=== PATIENT | female | born 1940 | race Caucasian/White ===

== ENCOUNTER 2020-02-24 09:46 | Inpatient (IN) | payer MEDICARE, OTHER, SELFPAY ==
[2020-02-24] VITALS (7 sets, daily range): BP systolic 110–120; BP diastolic 67–75; PULSE 60–84; RESP 14–20; TEMP 35.5–36.6; O2SAT 94–98; BMI 22.4; BMI 21.7; BMI 21.8
--- NOTE | 2020-02-24 10:26 | EKG12_ITS ---
Test Reason : ABD PAIN Blood Pressure : / mmHG Vent. Rate : 058 BPM Atrial Rate : 058 BPM P-R Int : 150 ms QRS Dur : 090 ms QT Int : 490 ms P-R-T Axes : 026 -22 -10 degrees QTc Int : 481 ms Sinus bradycardia Otherwise normal ECG Confirmed by ROBINA DE DIOS, JOSE ([id number]), staff editor SIS DYKES ([id number]) on 03/01/2020 2:03:18 PM Referred By: SHRADDHA Confirmed By:SULAIMAN QUARLES MD
--- NOTE | 2020-02-24 10:27 | CT_ITS ---
STUDY: CT ABDOMEN AND PELVIS WITH CONTRAST REASON FOR EXAM: Female, 79 years old. UPPER ABD PAIN SINCE THIS A.M. RADIATION DOSAGE (If Supplied By Facility): CTDIvol = ( 12.60 ) mGy, DLP = ( 396.77 ) mGycm TECHNIQUE: Transaxial images were obtained from the dome of the diaphragm to the symphysis pubis without oral contrast. IV 100mL Isovue-300 was administered. Sagittal and coronal images were reconstructed. Individualized dose optimization techniques were used for this CT. COMPARISON: 07/11/2011. FINDINGS: Limited views through the lower chest show evidence for right mastectomy. Mild fibrosis in the lung bases. Mild cardiomegaly. In the liver, a 1.5 cm low density structure in the dome of the liver is stable. There is mild intrahepatic bile duct distention. Abnormal gallbladder, moderately to markedly distended, thickened wall, and with intraluminal sludge and stones. Distended common carotid measuring 1.2 cm. No definite common bile duct stone. Grossly negative spleen. Grossly negative adrenal glands. The pancreas appears significantly larger than expected for patient of this age, cannot exclude pancreatic edema and generalized edema in the upper abdomen. Recommend correlation with pancreatic enzymes and evaluation for pancreatitis. No acute abnormalities of the kidneys. Again seen are numerous renal cysts. Largest is of the left upper pole and measures 4.2 cm. There are also parapelvic cysts of the left kidney. Right kidney again shows extensive scarring lower pole and extensive parenchymal calcifications and nonobstructing stones are not excluded. No definite hydronephrosis on either side. Evaluation of the GI tract is limited by absence of oral contrast. Cannot exclude stomach wall thickening. No dilated loops of bowel or evidence for obstruction. Cannot exclude segmental thickening of the lemus of the small or large bowel. Cannot exclude enteritis or colitis. Moderate diffuse fecal retention. Appendix within normal limits. Tortuous abdominal aorta. Normal inferior vena cava. Normal retroperitoneum. Normal urinary bladder. There is atrophy of the uterus. Normal abdominal wall. There are diffuse degenerative changes of the visualized lumbar spine. CT/Abdomen/Pelvis W IV Cont ONLY IMPRESSION: Intrahepatic bile duct distention. Distended gallbladder with sludge and stones. Distended common common bile duct. Enlarged possibly edematous pancreas suggestive of pancreatitis. Correlate with pancreatic enzymes. Electronically Signed: Arnel Christianson MD at 12:34 EDT , Service support ,
--- NOTE | 2020-02-24 10:28 | RAD_ITS ---
STUDY: X-RAY CHEST REASON FOR EXAM: Female, 79 years old. Upper abd pain. TECHNIQUE: Frontal and lateral views of the chest. COMPARISON: None. FINDINGS: There is hyperinflation of the lungs consistent with chronic obstructive lung disease (COPD). No infiltrates or effusions. There is no demonstrated pleural abnormality. Normal size heart. Normal mediastinum and [place]. Normal visualized pulmonary arteries. There is atherosclerotic tortuosity of the aortic arch and descending thoracic aorta. There are diffuse degenerative changes of the visualized thoracic spine. There is degenerative osteoarthritis of the bilateral shoulders. There is no demonstrated abnormality of the visualized soft tissue structures of the upper abdomen. RAD/Chest PA and Lateral IMPRESSION: No definite acute or significant abnormality seen. Electronically Signed: Arnel Christianson MD at 11:54 EDT , Service support ,
--- NOTE | 2020-02-24 10:32 | ED.VIS.GI ---
History of Present Illness Chief Complaint: Abd Pain Informant: Patient - Abdominal Pain/Flank Pain Onset: Today Context: Gradual Onset Timing: Waxes and wanes Quality: Aching Location: Epigastric, RUQ, LUQ - Nausea/Vomiting/Emesis GI Symptom: Nausea. Negative for: Vomiting - Diarrhea/Melena/Hematochezia GI Symptom: Negative for: Diarrhea, Melena, Hematochezia Associated Symptoms: Negative for: Dysuria, Frequency, Hematuria Narrative: Patient is an 79-year-old female with history of chronic back pain, on tramadol, hypertension and hyperlipidemia presenting with abdominal pain. Patient states at 4 AM she woke up from sleep because she was having abdominal pain. She states it is diffuse in her upper abdomen but seems to be little bit worse on the left than the right. She says it waxes and wanes in intensity. She describes it as achy and then sharp sometimes. She denies any associated chest pain, shortness of breath or diarrhea. She states she had 2 normal bowel movement this morning. She had an episode of nausea but no vomiting. She denies any fever or chills. She denies any urinary symptoms. Patient took 1/2 tablet of tramadol when she woke up this morning and then a 50 mg tablet of tramadol a couple hours later. She also took a 500 mg Tylenol. She is had no relief of her symptoms with this. Patient was started on tramadol 2 weeks ago for chronic back pain. She denies any sick contacts. She states she had a kidney stone 10+ years ago and the pain feels similar. Past Medical History - Allergies and Home Meds Allergies/Adverse Reactions: Allergies No Known Allergies Allergy (Verified 02/24/20 09:58) Past Medical History: - - Hypertension, hyperlipidemia, history of kidney stones remotely Surgical History: noncontributory Smoking Status: Never smoker - Family History Maternal Family History: Reports: - - Denies known maternal medical history including cardiac history. Paternal Family History: Reports: - - Denies known paternal medical history including cardiac history. Review of Systems General: Denies: Chills, Fever, Sweats Eyes: Denies: Visual changes - bilaterally, Diplopia ENT: Denies: Rhinorrhea, Sore throat Cardiovascular: Denies: Chest pain, Palpitations Respiratory: Denies: Dyspnea, Cough, Dyspnea on exertion Gastrointestinal: Reports: Abdominal pain, Nausea. Denies: Vomiting, Diarrhea, Constipation, Melena, Hematochezia Genitourinary: Denies: Dysuria, Hematuria, Frequency Musculoskeletal: Denies: Back pain, Extremity Pain Skin: Denies: Rash, Wounds Neurological: Denies: Headache, Weakness, Numbness Physical Exam Vital Signs/Narrative: Vital Signs Temp Pulse Resp BP Pulse Ox 02/24/20 09:47 96 F L 60 14 120/70 96 Inital Vital Signs reviewed: Yes General: Well nourished, Well developed, No Acute Distress Head: Normocephalic, Atraumatic Eyes: Perrl, EOMI ENT: Moist mucous membranes, No rhinorrhea Neck: Supple, Nontender Cardiovascular: Regular rate, Regular rhythm, No murmurs Respiratory: No distress, CTA bilaterally, Chest nontender Abdomen: Soft, Nondistended, Normal bowel sounds, No masses, Tender, - - Tenderness diffusely in the upper abdomen, left upper quadrant worse than right upper quadrant. Tenderness seems to be out of proportion to exam.. Negative for: Guarding, Rebound tenderness Back: Nontender, Normal Inspection. Negative for: CVA tenderness, Spinal tenderness Extremities: Nontender, No edema. Negative for: Edema Skin: Normal color, No rash Neurological: Alert, Oriented x3, Cranial nerves II-XII grossly intact, Normal Strength, Normal Sensation Psychological: Normal affect, Normal Mood Diagnostic/Tx/Re-eval Chest X-Ray - ED: 1 View, Read by ED Physician, Read by Radiologist, No Acute Disease Clinical Impression(s) from Imaging Studies Abdomen/Pelvis CT 02/24/20 10:27 IMPRESSION: Intrahepatic bile duct distention. Distended gallbladder with sludge and stones. Distended common common bile duct. Enlarged possibly edematous pancreas suggestive of pancreatitis. Correlate with pancreatic enzymes. Electronically Signed: Arnel Christianson MD at 12:34 EDT , Service support , Chest X-Ray 02/24/20 10:28 IMPRESSION: No definite acute or significant abnormality seen. Electronically Signed: Arnel Christianson MD at 11:54 EDT , Service support , Laboratory Data 02/24/20 02/24/20 02/24/20 10:40 10:40 10:40 WBC 11.6 H RBC 4.16 L Hgb 13.9 Hct 40.3 MCV 96.9 MCH 33.4 H MCHC 34.5 RDW Std Deviation 42.5 RDW Coeff of William 12.2 Plt Count 243 MPV 9.8 Immature Gran % (Auto) 0.300 Neut % (Auto) 91.1 H Lymph % (Auto) 3.2 L [place] % (Auto) 2.7 Eos % (Auto) 2.4 Baso % (Auto) 0.3 Absolute Neuts (auto) 10.6 H Absolute Lymphs (auto) 0.37 L Nucleated RBC % 0 Differential Comment COMMENT Sodium 138 Potassium 3.1 L Chloride 102 Carbon Dioxide 29.0 Anion Gap 7 BUN 21 H Creatinine 0.96 Estim Creat Clear Calc 41.36 Est GFR (MDRD) Af Amer 72 Est GFR (MDRD) Non-Af 59 L BUN/Creatinine Ratio 21.8 H Glucose 102 Lactic Acid 1.7 Calcium 9.2 Total Bilirubin 1.00 AST 139 H ALT 86 H Alkaline Phosphatase 72 Troponin I < 0.015 Total Protein 7.1 Albumin 3.8 Globulin 3.3 Albumin/Globulin Ratio 1.2 Lipase Urine Color Urine Clarity Urine pH Ur Specific [place] Urine Protein Urine Glucose (UA) Urine Ketones Urine Occult Blood Urine Nitrite Urine Bilirubin Urine Urobilinogen Ur Leukocyte Esterase Urine RBC Urine WBC Ur Squamous Epith Cells Urine Bacteria Urine Mucus 02/24/20 02/24/20 10:40 12:10 WBC RBC Hgb Hct MCV MCH MCHC RDW Std Deviation RDW Coeff of William Plt Count MPV Immature Gran % (Auto) Neut % (Auto) Lymph % (Auto) [place] % (Auto) Eos % (Auto) Baso % (Auto) Absolute Neuts (auto) Absolute Lymphs (auto) Nucleated RBC % Differential Comment Sodium Potassium Chloride Carbon Dioxide Anion Gap BUN Creatinine Estim Creat Clear Calc Est GFR (MDRD) Af Amer Est GFR (MDRD) Non-Af BUN/Creatinine Ratio Glucose Lactic Acid Calcium Total Bilirubin AST ALT Alkaline Phosphatase Troponin I Total Protein Albumin Globulin Albumin/Globulin Ratio Lipase 36276 H Urine Color Yellow Urine Clarity Cloudy Urine pH 7.0 Ur Specific [place] 1.005 Urine Protein 15 H Urine Glucose (UA) Normal Urine Ketones Negative Urine Occult Blood 10 H Urine Nitrite Positive H Urine Bilirubin Negative Urine Urobilinogen Normal Ur Leukocyte Esterase 500 H Urine RBC 0-5 SEEN Urine WBC 25-50 SEEN Ur Squamous Epith Cells 0 SEEN Urine Bacteria 3+ Urine Mucus 0 SEEN - Rhythm Strip Rhythm Strip: Sinus Rhythm Rate: 58 Ectopy: None - EKG Initial EKG Interpretation: Sinus Bradycardia, - - Sinus bradycardia at a rate of 58 Normal intervals Normal axis Normal ST segments - Medical Decision Making Patient is evaluated for 1 day of epigastric/upper quadrant abdominal pain. Patient is quite tender in her upper abdomen diffusely. Hemodynamically she is stable. Patient is given morphine and Zofran for pain control. Lab work is pertinent for a mildly elevated left white blood cell count and a significantly elevated lipase. CT of the abdomen pelvis shows an enlarged gallbladder with sludge and gallstones as well as a distended common bile duct. This presentation is concerning for pancreatitis and possibly gallstone pancreatitis. Discussed the case with surgery on-call, Dr. Ariza, who agrees to evaluate the patient but states that should be a primary medicine admission. Discussed with medicine on-call who agrees admit the patient. Patient does have 500 leukoesterase in her urine. She is not having UTI symptoms and is not had significant white blood cells. Urine culture sent but she is not started antibiotics at this time. I question if the elevated leukoesterase is secondary to inflammatory changes from her pancreatitis. Patient is agreeable with admission. She is given a second dose of IV morphine for pain control emergency room as well as IV fluids. ED Disposition - Plan for ED Patient: Disposition: Acute Care Hospital [facility] Diagnosis: Acute pancreatitis, Gallstones
[2020-02-24] MEDS: Morphine 4 MG/ML Syringe IV ×3 (10:46→23:45)
[2020-02-24] MEDS: Ondansetron 4 MG/2 ML Vial IV (10:46)
[2020-02-24 10:50] LABS: Absolute Lymphocyte Count 0.37 X10^3/uL (0.83-4.51); Absolute Neutrophil Count 10.6 X10^3/uL (2.0-7.7); Basophil# 0.04 X10^3/uL; Basophil% 0.3 % (0-1); Eosinophil# 0.28 X10^3/uL; Eosinophils% 2.4 % (0-5); Hematocrit 40.3 % (37-47); Hemoglobin 13.9 g/dL (12.0-15.0); Lymphocyte # 0.37 X10^3/ul (4.0); Lymphocyte % 3.2 % (19-41); Mean Corp Hgb Conc 34.5 g/dL (32-36); Mean Corpuscular Hgb 33.4 pg (27.0-32.0); Mean Corpuscular Volume 96.9 fL (81-99); Mean Platelet Vol. 9.8 fl (6.2-12.0); Monocyte# 0.31 X10^3/uL; Monocyte% 2.7 % (0-10); NRBC Flagged by Analyzer 0 % (0-5); Neutrophil # 10.59 X10^3/uL (2.7-7.7); Neutrophil % 91.1 % (47-70); POSITIVE DIFFERENTIAL YES; POSITIVE MORPHOLOGY YES; Platelet Count 243 K/mm3 (150-450); RBC Distribution Width CV 12.2 % (11.6-14.6); RBC Distribution Width SD 42.5 fl (35.1-43.9); Red Blood Count 4.16 M/mm3 (4.2-5.4); White Blood Count 11.6 K/mm3 (4.4-11.0)
[2020-02-24 10:53] LABS: Differential Indicated SCAN CRITERIA MET
[2020-02-24 11:08] LABS: ALB/GLOB Ratio 1.2 RATIO (0.9-2.4); AST(SGOT) 139 U/L (15-37); Alanine Aminotransfer ALT/SGPT 86 U/L (13-56); Albumin, Serum 3.8 g/dL (3.2-5.0); Alkaline Phosphatase 72 U/L (45-117); Anion Gap 7 (5-15); BUN 21 mg/dL (7-18); BUN/Creat Ratio 21.8 RATIO (10-20); Calcium,Total 9.2 mg/dL (8.5-10.1); Chloride 102 mmol/L (98-107); Creatinine, Serum 0.96 mg/dL (0.55-1.02); EST Glomerular Filtration Rate 59 mL/min (>60); Est Glom Filt Rate - Afr Amer 72 mL/min (>60); Estimated Creatinine Clearance 41.36 ml/min; Globulin 3.3 g/dL (2.2-4.2); Glucose 102 mg/dL (74-106); Potassium 3.1 mmol/L (3.5-5.1); Protein, Total 7.1 g/dL (6.4-8.2); Sodium Level 138 mmol/L (136-145)
[2020-02-24 11:10] LABS: Lactic Acid 1.7 mmol/L (0.4-1.9)
[2020-02-24 12:03] LABS: Lipase 17988 U/L (73-393)
[2020-02-24 12:19] LABS: Mucous, Urine 0 SEEN /hpf (<or=2+); Squamous Epithelial Cells - UA 0 SEEN /hpf (5-10)
[2020-02-24 12:20] LABS: Color, Urine Yellow (Yellow); Glucose, Dipstick Normal (Normal); Ketone-Dipstick Negative (Negative); Leukocyte Esterase-Dipstick 500 /ul (Negative); Nitrite-Dipstick Positive (Negative); Occult Blood-Urine 10 /ul (Negative); Protein-Dipstick 15 mg/dl (Negative); Specific Gravity, Urine 1.005 (1.002-1.030); Urine Bilirubin Dipstick Negative (Negative); Urine Clarity Cloudy (Clear); Urine Urobilinogen Normal (Normal)
[2020-02-24 12:30] LABS: White Blood Cells 25-50 SEEN /hpf (0-5)
[2020-02-24 12:31] LABS: Bacteria 3+ /hpf (None Seen); Red Blood Cells-Urine 0-5 SEEN /hpf (0-5)
[2020-02-24] MEDS: 0.9% Normal Saline 1,000 ML 999 ML IV (13:06)
--- NOTE | 2020-02-24 13:23 | HP.PCM_ITS ---
<Bailee Torres - Last Filed: 02/24/20 14:28> Problem List (1) Acute pancreatitis Status: Acute (2) Hypertension Status: Chronic (3) Hyperlipidemia Status: Chronic (4) GERD (gastroesophageal reflux disease) Status: Chronic History of Present Illness Date of Admission: 02/24/20 Chief Complaint: Abdominal pain. The patient is a 79 year old F who presents emergency room due to abdominal pain. Patient states abdominal pain had a fairly sudden onset early this morning about 4 AM. She describes generalized abdominal pain however slightly increased in the left upper quadrant. She denies nausea, vomiting. Denies fever, chills. Denies urinary symptoms. Denies flank pain. Denies other recent illness. She has a past medical history of hypertension, hyperlipidemia, GERD. Past Medical History Past Medical History (Chronic Problems): Chronic Problems Hypertension (Chronic) Hyperlipidemia (Chronic) GERD (gastroesophageal reflux disease) (Chronic) Cholelithiasis with chronic cholecystitis (Chronic) Allergies No Known Allergies Allergy (Verified 02/24/20 09:58) Home Medications: Ambulatory Orders Medication Instructions Recorded Hydrochlorothiazide [Hctz] 25 mg PO DAILY 06/17/17 Potassium Chloride [K-Dur] 20 meq PO DAILY 06/17/17 Acetaminophen [Tylenol] 1,000 mg PO Q8H PRN PRN 02/24/20 Atorvastatin Calcium [Lipitor] 10 mg PO QHS 02/24/20 Metoprolol Succinate [Toprol Xl] 100 mg PO DAILY 02/24/20 traMADol [Ultram (G)] 25 - 50 mg PO Q6H PRN PRN 02/24/20 Surgical History: - - Right total knee arthroplasty, mastectomy Psychiatric History: No pertinent psych hx 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 Paternal History Items: - - Denies known paternal medical history including cardiac history. Review of Systems Constitutional: Denies: Chills, Fever, Weight Change HEENT: Denies: Head Aches, Sinus Congestion, Sinus Drainage Cardiovascular: Denies: Chest Pain, Palpitations Respiratory: Denies: Cough, Shortness of breath at rest, Sputum production Gastrointestinal: Reports: Abdominal Pain. Denies: Nausea, Vomiting Genitourinary: Denies: Dysuria Musculoskeletal: Denies: Joint Pain, Joint Tenderness Skin: Denies: Rash, Wounds Neurological: Denies: Numbness, Tingling, Focal weakness Psychiatric: Denies: Anxiety, Depression, Homicidal Ideations, Suicidal Ideations Hematologic/ Lymphatic: Denies: Easy Bruising, Easy Bleeding VTE Information - Inpt Only VTE Present on Admission: No VTE Mechan Device Prophylaxis: None VTE Pharm Prophylaxis ordered?: Yes Patient Problems: Active and Suspected Problems Acute pancreatitis (Acute) Gallstones (Acute) - Physical Exam Vitals/I&O's: Vital Signs Temp Pulse Resp BP Pulse Ox 96 F L 64 18 112/67 98 02/24/20 09:47 02/24/20 13:10 02/24/20 13:10 02/24/20 13:10 02/24/20 13:10 Oxygen Delivery Method Room Air Weight: 134 lb 11.239 oz Body Mass Index (BMI) 22.4 General: Alert, Oriented x3, Cooperative HEENT: Atraumatic, PERRLA, EOMI, Normocephalic Neck: Supple, No JVD, Negative Carotid Bruits Lungs: Clear to auscultation, Normal air movement Cardiovascular: Regular rate, Regular Rhythm, Normal S1, Normal S2, No murmurs Abdomen: Bowel Sounds Present, Soft, Non-Distended, Tender Extremities: No clubbing, No cyanosis, No edema, Capillary Refill Less than 3 Seconds Skin: No rashes, No breakdown Musculoskeletal: No Tenderness to Palpation of Joints or Extremities Neurological: Cranial nerves II-XII grossly intact, Neuro grossly intact Psych/Mental Status: Normal Affect, Appropriate Laboratory Results 02/24/20 10:40: WBC 11.6 H, RBC 4.16 L, Hgb 13.9, Hct 40.3, MCV 96.9, MCH 33.4 H , MCHC 34.5, RDW Std Deviation 42.5, RDW Coeff of William 12.2, Plt Count 243, MPV 9.8, Immature Gran % (Auto) 0.300, Neut % (Auto) 91.1 H, Lymph % (Auto) 3.2 L, [place] % (Auto) 2.7, Eos % (Auto) 2.4, Baso % (Auto) 0.3, Absolute Neuts (auto) 10.6 H, Absolute Lymphs (auto) 0.37 L, Nucleated RBC % 0, Differential Comment COMMENT 02/24/20 10:40: Sodium 138, Potassium 3.1 L, Chloride 102, Carbon Dioxide 29.0, Anion Gap 7, BUN 21 H, Creatinine 0.96, Estim Creat Clear Calc 41.36, Est GFR (MDRD) Af Amer 72, Est GFR (MDRD) Non-Af 59 L, BUN/Creatinine Ratio 21.8 H, G lucose 102, Calcium 9.2, Total Bilirubin 1.00, AST 139 H, ALT 86 H, Alkaline Phosphatase 72, Troponin I < 0.015, Total Protein 7.1, Albumin 3.8, Globulin 3.3, Albumin/Globulin Ratio 1.2 02/24/20 10:40: Lactic Acid 1.7 02/24/20 10:40: Lipase 59332 H 02/24/20 12:10: Urine Color Yellow, Urine Clarity Cloudy, Urine pH 7.0, Ur Specific [place] 1.005, Urine Protein 15 H, Urine Glucose (UA) Normal, Urine Ketones Negative, Urine Occult Blood 10 H, Urine Nitrite Positive H, Urine Bilirubin Negative, Urine Urobilinogen Normal, Ur Leukocyte Esterase 500 H, Urine RBC 0-5 SEEN, Urine WBC 25-50 SEEN, Ur Squamous Epith Cells 0 SEEN, Urine Bacteria 3+, Urine Mucus 0 SEEN Current Medications Sodium Chloride () 1,000 mls @ 999 mls/hr IV .Q1H1M ONE Stop: 02/24/20 13:47 Last Admin: 02/24/20 13:06 Dose: 999 mls/hr Documented by: Assessment/Plan All Active Problems Acute pancreatitis (Acute) Gallstones (Acute) 1. Acute pancreatitis, possible gallstone pancreatitis-CT abdomen pelvis on admission shows intrahepatic bile duct distention, distended gallbladder with sludge and stones. Distended common bile duct. Pancreatitis. Lipase 69565. Total bilirubin normal. N.p.o. IV fluids. PRN pain regimen. Repeat labs in a.m. Dr. Ariza, general surgery consulted. Gallbladder ultrasound ordered. 2. Suspected UTI-UA with 3+ bacteria, positive nitrite. Culture pending. Patient denies symptoms. Will initiate antibiotics if culture shows significant growth. 3. Mild hypokalemia-replace per protocol, trend BMP. 4. Hypertension-stable, continue metoprolol. Hold HCTZ. 5. Hyperlipidemia-continue statin. 6. GERD- continue ranitidine regimen. DVT prophylaxis- Lovenox sc This patient was seen by JOE Lundberg under the supervision of Dr. Paredes. <Jordan Paredes F - Last Filed: 02/24/20 16:03> History of Present Illness The patient is a 79 year old F [] Past Medical History Allergies No Known Allergies Allergy (Verified 02/24/20 09:58) - Physical Exam Vitals/I&O's: Vital Signs Temp Pulse Resp BP Pulse Ox 97.4 F L 80 20 H 116/75 94 02/24/20 14:45 02/24/20 14:54 02/24/20 14:45 02/24/20 14:45 02/24/20 14:45 Oxygen Delivery Method Room Air Weight: 130 lb 12.8 oz Body Mass Index (BMI) 21.7 Intake and Output for Last 24 Hours 02/22/20 02/23/20 02/24/20 23:59 23:59 23:59 Intake Total 1000 / 1000 Balance 1000 / 1000 Laboratory Results 02/24/20 10:40: WBC 11.6 H, RBC 4.16 L, Hgb 13.9, Hct 40.3, MCV 96.9, MCH 33.4 H , MCHC 34.5, RDW Std Deviation 42.5, RDW Coeff of William 12.2, Plt Count 243, MPV 9.8, Immature Gran % (Auto) 0.300, Neut % (Auto) 91.1 H, Lymph % (Auto) 3.2 L, [place] % (Auto) 2.7, Eos % (Auto) 2.4, Baso % (Auto) 0.3, Absolute Neuts (auto) 10.6 H, Absolute Lymphs (auto) 0.37 L, Nucleated RBC % 0, Differential Comment COMMENT 02/24/20 10:40: Sodium 138, Potassium 3.1 L, Chloride 102, Carbon Dioxide 29.0, Anion Gap 7, BUN 21 H, Creatinine 0.96, Estim Creat Clear Calc 41.36, Est GFR (MDRD) Af Amer 72, Est GFR (MDRD) Non-Af 59 L, BUN/Creatinine Ratio 21.8 H, Glucose 102, Calcium 9.2, Total Bilirubin 1.00, AST 139 H, ALT 86 H, Alkaline Phosphatase 72, Troponin I < 0.015, Total Protein 7.1, Albumin 3.8, Globulin 3.3, Albumin/Globulin Ratio 1.2 02/24/20 10:40: Lactic Acid 1.7 02/24/20 10:40: Lipase 50110 H 02/24/20 12:10: Urine Color Yellow, Urine Clarity Cloudy, Urine pH 7.0, Ur Specific [place] 1.005, Urine Protein 15 H, Urine Glucose (UA) Normal, Urine Ketones Negative, Urine Occult Blood 10 H, Urine Nitrite Positive H, Urine Bi lirubin Negative, Urine Urobilinogen Normal, Ur Leukocyte Esterase 500 H, Urine RBC 0-5 SEEN, Urine WBC 25-50 SEEN, Ur Squamous Epith Cells 0 SEEN, Urine Bacteria 3+, Urine Mucus 0 SEEN Current Medications Enoxaparin Sodium (Lovenox) 40 mg SC DAILY COUNTS INCLUDE 234 BEDS AT THE [facility] Sodium Chloride () 250 mls @ 15 mls/hr IV .[id number] PRN PRN Reason: Saline Flush Sodium Chloride () 250 mls @ 15 mls/hr IV .[id number] PRN PRN Reason: Additional IVPB Infusion Sodium Chloride () 1,000 mls @ 125 mls/hr IV .Q8H COUNTS INCLUDE 234 BEDS AT THE [facility] Last Admin: 02/24/20 14:41 Dose: 125 mls/hr Documented by: Potassium Chloride () 10 meq in 100 mls @ 100 mls/hr IV BOLUS Q1H COUNTS INCLUDE 234 BEDS AT THE [facility] Stop: 02/24/20 17:59 Magnesium Sulfate 2 gm/ Sodium (Chloride) 104 mls @ 52 mls/hr IV X1 ONE Stop: 02/24/20 16:23 Ampicillin Sodium/Sulbactam (Sodium 3 gm/ Sodium Chloride) 112 mls @ 150 mls/hr IV Q8 COUNTS INCLUDE 234 BEDS AT THE [facility] Melatonin (Melatonin) 3 mg PO QHS PRN PRN PRN Reason: INSOMNIA Morphine Sulfate () 2 - 4 mg IV Q3H PRN PRN PRN Reason: Pain Score 6-10/10 Last Admin: 02/24/20 14:41 Dose: 4 mg Documented by: Morphine Sulfate () 2 - 4 mg IV Q3H PRN PRN PRN Reason: pain scale 6-10/10 Ondansetron HCl (Zofran) 4 mg IV Q8H PRN PRN PRN Reason: NAUSEA/VOMITING Sodium Chloride () 10 - 40 ml IV UD PRN PRN Reason: SALINE FLUSH Last Admin: 02/24/20 14:50 Dose: 5 ml Documented by: Addendum: Dr. Paredes I personally examined the patient and reviewed the chart. I agree with the above. 79-year-old female presenting with abdominal pain that started this morning at 4 AM. She points to her mid epigastrium and was found to have pancreatitis on CT scan with a highly elevated lipase. She also had a dilated common bile duct on CT scan and is currently undergoing an ultrasound. Plan will be for positive operative intervention tomorrow morning, in the meantime we will also start her on Unasyn because she does have signs of a UTI and this will help cover her possible cholecystitis. She has a slight elevation in her white count otherwise no other significant sign of infection. Bilirubin also is at 1, so is possible that this is very early in the obstruction or if she already passed a stone. We will continue making her n.p.o. and replace her potassium. Continue with IV fluids at 125 cc/h. We will continue with morphine as well for pain management. Inpatient E&M: [id number] Init Hosp L3
--- NOTE | 2020-02-24 13:33 | ED.RN ---
PT MOTHER PHONE NUMBER [phone]
--- NOTE | 2020-02-24 14:24 | US_ITS ---
STUDY: ABDOMINAL ULTRASOUND - RIGHT UPPER QUADRANT REASON FOR VISIT: Female, 79 years old PANCREATITIS AND GALLSTONES TECHNIQUE: Ultrasound evaluation of the right upper quadrant was performed with real-time and static ellis-scale imaging. TECHNICAL QUALITY: Adequate. COMPARISON: CT scan of the same day. FINDINGS: Liver: The liver measures 16.1 cm. There is normal echogenicity of the liver. The bile ducts are within normal limits. There is hepatic color flow. The direction of portal flow is hepatopetal. There is a probable 1.9 cm hemangioma of the right lobe. Gallbladder: There is a markedly distended gallbladder. The gallbladder wall measures 8 mm. There is a positive sonographic Godoy''s sign. There is pericholecystic fluid. There are multiple echogenic structures within the gallbladder, consistent with multiple gallstones. There is slight. Common Bile Duct (C.B.D.): The common bile duct measures 1.2 mm. Pancreas: Normal size of the head, body and tail of the pancreas. There is normal echogenicity of the pancreas. There is no demonstrated pancreatic mass or cyst. Right Kidney: Normal size of the right kidney. The right kidney measures 9.8 cm. There is thinning of the renal cortex. The right cortex measures 0.9 cm. There is no demonstrated renal mass or cyst. There is no right hydronephrosis. US/Gallbladder IMPRESSION: As seen on CT scan, markedly abnormal gallbladder is distended, has a thickened wall, numerous stones and sludge, and there was localized tenderness consistent with cholecystitis. Electronically Signed: Arnel Christianson MD at 15:55 EDT , Service support ,
[2020-02-24] MEDS: 0.9% Normal Saline 1,000 ML 125 ML IV (14:41)
[2020-02-24] MEDS: Morphine 2 MG/ML Syringe IV (14:41)
[2020-02-24] MEDS: 0.9% Saline Lock 10 ML Syringe IV ×3 (14:50→17:57)
--- NOTE | 2020-02-24 15:09 | NURSING ---
Johanna in lab was notified to draw blood work so results are in by 0600.
--- NOTE | 2020-02-24 15:10 | PCM.CONS.GEN ---
Problem List (1) Acute pancreatitis Status: Acute Qualifiers: Pancreatitis type: biliary Acute pancreatitis complication: unspecified Qualified Code(s): K85.10 - Biliary acute pancreatitis without necrosis or infection (2) Cholelithiasis with chronic cholecystitis Status: Chronic Qualifiers: Cholelithiasis location: gallbladder and bile duct Reason for Consult Date of Consultation: 02/24/20 History of Present Illness: The patient is a 79 year old F who presents to the emergency room with a 1 day history of severe epigastric left upper quadrant pain but at least a 2-week history of intermittent waxing and waning epigastric left upper quadrant pain. I been asked to see this patient in consultation by and Dr Paredes and a written copy of my surgical consult will be present on her charting. The patient's primary care physician is Dr. Timothy Dickey. The patient states she is never previous had any abdominal surgery. She thought this episode was just indigestion or gas. Denies fever. She had some back pain last week for which she went to see Dr. Hammond. Otherwise she states that she has been mostly homebound with the pandemic restrictions. On her presentation her white blood cell count was 11.6 with a hemoglobin 13.9 hematocrit of 40.3 and a platelet count of 243,000 with 91% neutrophils. Potassium was low at 3.1 and BUN is elevated to 21 and creatinine 0.96. Lactic acid level was 1.7. Total bilirubin is 1. AST 139. ALT 86. Alkaline phosphatase 72. Lipase is 17,988. In addition her urinalysis appears notable for occult blood and positive urine nitrite and 500 leukocyte esterase. Urine WBCs 25-50. Chest x-ray did not show acute abnormality CT of the abdomen and pelvis with IV contrast only demonstrated mild intrahepatic bile duct distention. Moderately to markedly distended thick-walled gallbladder with intraluminal sludge and stones. Common bile duct 1.2 cm. No definitive common bile duct stone. The pancreas appears significant larger than expected. Cannot exclude pancreatic edema. Enzymes recommended. It is of note that the patient is afebrile. Heart rate is normal respirations slightly elevated. Blood pressure normal. Despite 8 mg of morphine provided in the emergency room intravenously the patient is still claiming to have a 9 out of 10 pain. She points to the epigastric left upper quadrant. Past Medical History Past Medical History (Chronic Problems): Chronic Problems Hypertension (Chronic) Hyperlipidemia (Chronic) GERD (gastroesophageal reflux disease) (Chronic) Cholelithiasis with chronic cholecystitis (Chronic) Allergies No Known Allergies Allergy (Verified 02/24/20 09:58) Home Medications: Ambulatory Orders Medication Instructions Recorded Hydrochlorothiazide [Hctz] 25 mg PO DAILY 06/17/17 Potassium Chloride [K-Dur] 20 meq PO DAILY 06/17/17 Acetaminophen [Tylenol] 1,000 mg PO Q8H PRN PRN 02/24/20 Atorvastatin Calcium [Lipitor] 10 mg PO QHS 02/24/20 Metoprolol Succinate [Toprol Xl] 100 mg PO DAILY 02/24/20 traMADol [Ultram (G)] 25 - 50 mg PO Q6H PRN PRN 02/24/20 Surgical History: - - Right total knee arthroplasty, mastectomy Psychiatric History: No pertinent psych hx 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 Paternal History Items: - - Denies known paternal medical history including cardiac history. Review of Systems Constitutional: Reports: Anorexia. Denies: Chills, Fever, Night Sweats HEENT: Reports: Difficulty Hearing. Denies: Difficulty Swallowing Cardiovascular: Reports: Chest Pain, - - Left upper quadrant lower chest pain. Difficulty taking deep respiration. Respiratory: Reports: Pleuritic Pain Gastrointestinal: Reports: Abdominal Pain. Denies: Melena Neurological: Denies: Balance problems Endocrine: Denies: Change in Body Habitus Patient Problems: Active and Suspected Problems Acute pancreatitis (Acute) - Physical Exam Vitals/I&O's: Vital Signs Temp Pulse Resp BP Pulse Ox 97.4 F L 80 20 H 116/75 94 02/24/20 14:45 02/24/20 14:54 02/24/20 14:45 02/24/20 14:45 02/24/20 14:45 Oxygen Delivery Method Room Air Weight: 130 lb 12.8 oz Body Mass Index (BMI) 21.7 Intake and Output for Last 24 Hours 02/22/20 02/23/20 02/24/20 23:59 23:59 23:59 Intake Total 1000 / 1000 Balance 1000 / 1000 General: Alert, Oriented x3, Cooperative, - - Patient appears to be uncomfortable HEENT: Atraumatic Oral: Moist Mucosa Neck: Supple Lungs: Clear to auscultation, - - Splinting and decreased air movement Cardiovascular: Regular rate, Regular Rhythm Abdomen: Bowel Sounds Not Present, Distended, - - Tender throughout the epigastrium particularly left upper quadrant. More mild tenderness right upper quadrant. Extremities: No Calf Tenderness, - - Well-healed right anterior knee vertical incision. Musculoskeletal: No Muscle Wasting Neurological: - - Cognition intact Psych/Mental Status: Normal Affect Laboratory Results 02/24/20 10:40: WBC 11.6 H, RBC 4.16 L, Hgb 13.9, Hct 40.3, MCV 96.9, MCH 33.4 H, MCHC 34.5, RDW Std Deviation 42.5, RDW Coeff of Iwlliam 12.2, Plt Count 243, MPV 9.8, Immature Gran % (Auto) 0.300, Neut % (Auto) 91.1 H, Lymph % (Auto) 3.2 L, Hamlin % (Auto) 2.7, Eos % (Auto) 2.4, Baso % (Auto) 0.3, Absolute Neuts (auto) 10.6 H, Absolute Lymphs (auto) 0.37 L, Nucleated RBC % 0, Differential Comment COMMENT 02/24/20 10:40: Sodium 138, Potassium 3.1 L, Chloride 102, Carbon Dioxide 29.0, Anion Gap 7, BUN 21 H, Creatinine 0.96, Estim Creat Clear Calc 41.36, Est GFR (MDRD) Af Amer 72, Est GFR (MDRD) Non-Af 59 L, BUN/Creatinine Ratio 21.8 H, Glucose 102, Calcium 9.2, Total Bilirubin 1.00, AST 139 H, ALT 86 H, Alkaline Phosphatase 72, Troponin I < 0.015, Total Protein 7.1, Albumin 3.8, Globulin 3.3, Albumin/Globulin Ratio 1.2 02/24/20 10:40: Lactic Acid 1.7 02/24/20 10:40: Lipase 72801 H 02/24/20 12:10: Urine Color Yellow, Urine Clarity Cloudy, Urine pH 7.0, Ur Specific [place] 1.005, Urine Protein 15 H, Urine Glucose (UA) Normal, Urine Ketones Negative, Urine Occult Blood 10 H, Urine Nitrite Positive H, Urine Bilirubin Negative, Urine Urobilinogen Normal, Ur Leukocyte Esterase 500 H, Urine RBC 0-5 SEEN, Urine WBC 25-50 SEEN, Ur Squamous Epith Cells 0 SEEN, Urine Bacteria 3+, Urine Mucus 0 SEEN Current Medications Enoxaparin Sodium (Lovenox) 40 mg SC DAILY [facility] Sodium Chloride () 250 mls @ 15 mls/hr IV .[id number] PRN PRN Reason: Saline Flush Sodium Chloride () 250 mls @ 15 mls/hr IV .[id number] PRN PRN Reason: Additional IVPB Infusion Sodium Chloride () 1,000 mls @ 125 mls/hr IV .Q8H [facility] Last Admin: 02/24/20 14:41 Dose: 125 mls/hr Documented by: Potassium Chloride () 10 meq in 100 mls @ 100 mls/hr IV BOLUS Q1H [facility] Stop: 02/24/20 17:59 Magnesium Sulfate 2 gm/ Sodium (Chloride) 104 mls @ 52 mls/hr IV X1 ONE Stop: 02/24/20 16:23 Ampicillin Sodium/Sulbactam (Sodium 3 gm/ Sodium Chloride) 112 mls @ 150 mls/hr IV Q8 [facility] Melatonin (Melatonin) 3 mg PO QHS PRN PRN PRN Reason: INSOMNIA Morphine Sulfate () 2 - 4 mg IV Q3H PRN PRN PRN Reason: Pain Score 6-10/10 Last Admin: 02/24/20 14:41 Dose: 4 mg Documented by: Morphine Sulfate () 2 - 4 mg IV Q3H PRN PRN PRN Reason: pain scale 6-10/10 Ondansetron HCl (Zofran) 4 mg IV Q8H PRN PRN PRN Reason: NAUSEA/VOMITING Sodium Chloride () 10 - 40 ml IV UD PRN PRN Reason: SALINE FLUSH Last Admin: 02/24/20 14:50 Dose: 5 ml Documented by: Assessment/Plan All Active Problems Acute pancreatitis (Acute) 79-year-old female. Findings are quite suspicious for gallstone pancreatitis. She also has a degree of dehydration and may have an additional urinary tract infection as well. Hypokalemia is noted. At this point I recommend medical maximization of her care. She needs to have IV fluids replaced and electrolytes replaced. Potassium and magnesium is been ordered. We will pursue pain control. We will repeat laboratory early tomorrow morning. I will obtain a gallbladder ultrasound. My preference if possible is to proceed with intervention with laparoscopic cholecystectomy and intraoperative cholangiograms and possible laparoscopic common bile duct exploration early in this process. During the pandemic I believe that a prolonged hospital stay places this patient at increased risk. I have discussed with the patient the technique, benefit, risk and alternatives. Absolutely no guarantees of success have been offered. The patient is aware that I may not be able to clear the duct of stones if present and then I might leave a biliary stent behind. We will recheck laboratory early in the morning. I anticipate proceeding with surgical intervention tomorrow morning barring any additional complications. The patient has been discussed with in a coordinated plan of care has been arranged. The patient will be initiated on Unasyn therapy. I appreciate the opportunity of assisting with her surgical care. We will hold her Lovenox in the morning. I will perform a repeat evaluation in the morning before definitively proceeding with surgical intervention. Jason Ariza M.D., F.A.C.S.
--- NOTE | 2020-02-24 15:45 | CHAPLAIN ---
Type of Pastoral Visit _x__ Initial Visit ___ Follow-up Visit ___ On-call Visit ___ General Patient Visit ___ Spiritual Assessment ___ Family Conference ___ Bereavement ___ Rapid Response ___ Code Blue ___ Other (describe below) Pastoral Care Referral From _x__ Patient ___ Family _x__ Nurse ___ Physician ___ Well Testing Operator ___ Manager Book ___ Other (describe below) Sacrament/Intervention _x__ Active listening ___ Anointing ___ Hoahaoism ___ Bereavement ___ Communion ___ Abbie exploration ___ ___ Life review _x__ Prayer ___ Reconciliation ___ Sacrament of Sick ___ Supportive presence ___ Wedding ___ Other (describe below) Pastoral Comments
[2020-02-24] MEDS: Potassium Chloride 10mEq/100mL 10 MEQ/100 ML IV.SOLN. 100 MEQ IV BOLUS ×3 (15:56→20:36)
[2020-02-24] MEDS: MELATONIN 3 MG TABLET PO (20:44)
[2020-02-25] VITALS (10 sets, daily range): BP systolic 97–128; BP diastolic 35–97; PULSE 64–77; RESP 16–18; TEMP 36.7–37.3; O2SAT 94–99; BMI 21.8
--- NOTE | 2020-02-25 07:30 | RAD_ITS ---
STUDY: INTRAOPERATIVE CHOLANGIOGRAM. REASON FOR EXAM: Female, 79 years old. Lap aicha, gallstone pancreatitis FLUOROSCOPY TIME (if supplied): ( 36.5 seconds ) minutes/seconds TECHNIQUE: And intraoperative cholangiogram was performed by the surgeon. Imaging was submitted. COMPARISON: None. FINDINGS: There is dilatation of the common bile duct. No intraluminal filling defect is seen. There is free flow of contrast into the duodenum. RAD/Cholangiogram/ O R,Initial IMPRESSION: Dilated common bile duct. No retained calculi are seen. There is free flow of contrast into the duodenum. Electronically Signed: George Hicks, at 9:40 EDT , Service support ,
--- NOTE | 2020-02-25 07:51 | GALL_PTH ---
PATIENT: GEORGIANA DALTON LOC: [facility] U#:[id number] AGE/SX: 79/F ROOM: [facility] RE02/24/[address]: Dr. Jordan Paredes MD : [id number] BED: 1 DIS: 02/26/2020 SPEC #: [id number] RECD: 02/25/20 10:25 STATUS: ERI MADELYN #: [id number] DANNA: 02/25/20 07:[address]: Jason Ariza DEPT: SURGICAL PATHOLOGY RECD BY: Ilay Givens ENTERED: 02/26/20 10:27 SP TYPE: GALLBLADDE OTHR DR: MD Dr. Jason Gomes MD Dr. William Lago, MD Tissues: Gallbladder, NOS Procedures: Surgery Specimen Level III Comments: @ Ordering doctor for SUIII edited from to @ suri ANDERSON at 02/26/20 1105 @ Submitting doctor edited from to @ suri ANDERSON at 02/26/20 1105 HEADER OPERATION: Laparoscopic cholecystectomy with IOC PRE-OP DIAGNOSIS: Gallstone pancreatitis TISSUE SUBMITTED: Gallbladder MICROSCOPIC DIAGNOSIS Gallbladder, cholecystectomy: Moderate chronic follicular cholecystitis and cholelithiasis. Mild acute inflammation. YOVANY:mayito 02/29/20 MICROSCOPIC DESCRIPTION Slides are reviewed. GROSS DESCRIPTION Received is one container labeled with the patient's name and designated gallbladder. The specimen consists of a gallbladder measuring 13.5 cm in length and up to 5.5 cm in diameter. The external surface is pink-goodson, smooth and glistening for the most part. Focally it is granular, hemorrhagic and contains cautery artifact. The gallbladder contains green-yellow mucoid bile and distended with a large amount of brownish-green sludge material mixed with stones measuring in aggregate 10 x 9 x 3 cm. The mucosa is bile-stained and without any mass lesions. The gallbladder wall measures up to 0.2 cm in thickness. Operations Officer Trust Department sections from the gallbladder and the cystic duct are submitted in one cassette. / YOVANY:mayito 02/26/20 TC:3 CPT: 13849
[2020-02-25] MEDS: Bupivacaine Mpf 0.5% 30 ML VIAL (08:40)
[2020-02-25 08:58] LABS: AST(SGOT) 61 U/L (15-37); Alanine Aminotransfer ALT/SGPT 73 U/L (13-56); Albumin, Serum 3.1 g/dL (3.2-5.0); Alkaline Phosphatase 52 U/L (45-117); Anion Gap 9 (5-15); BUN 22 mg/dL (7-18); BUN/Creat Ratio 28.6 RATIO (10-20); Calcium,Total 8.3 mg/dL (8.5-10.1); Chloride 108 mmol/L (98-107); Creatinine, Serum 0.77 mg/dL (0.55-1.02); EST Glomerular Filtration Rate 76 mL/min (>60); Est Glom Filt Rate - Afr Amer 92 mL/min (>60); Globulin 3.1 g/dL (2.2-4.2); Glucose 120 mg/dL (74-106); Lipase 5286 U/L (73-393); Magnesium 2.3 mg/dL (1.6-2.6); Potassium 3.5 mmol/L (3.5-5.1); Protein, Total 6.2 g/dL (6.4-8.2); Sodium Level 142 mmol/L (136-145)
[2020-02-25] MEDS: 0.9% Normal Saline 1,000 ML 75 ML IV (09:15)
--- NOTE | 2020-02-25 09:34 | OP.PCM_ITS ---
Problem List (1) Acute pancreatitis Status: Acute Qualifiers: Pancreatitis type: biliary Acute pancreatitis complication: unspecified Qualified Code(s): K85.10 - Biliary acute pancreatitis without necrosis or infection (2) Cholelithiasis with chronic cholecystitis Status: Chronic Qualifiers: Cholelithiasis location: gallbladder Biliary obstruction: without biliary obstruction Qualified Code(s): K80.10 - Calculus of gallbladder with chronic cholecystitis without obstruction Report of Operation Date of Procedure: 02/25/20 Pre-Operative Diagnosis: Gallstone pancreatitis, chronic cholecystitis cholelithiasis Post-Operative Diagnosis: Same Surgery/Procedure Performed:: Laparoscopic cholecystectomy with cholangiograms Description of Surgical Findings:: Timeout and informed consent was obtained. 79-year-old female was taken the operating placed by the table underwent general endotracheal intubation and anesthesia. She was already on therapeutic Unasyn.. The abdomen was sterilely prepped and draped. 0.5% Marcaine was used as a local anesthetic. Throughout the procedure a total of 30 cc was used. Skin sites were pre-anesthetized. A vertical infraumbilical incision was created holding sutures of 0 Vicryl placed varies needle inserted saline drop test performed the abdomen was insufflated with CO2 to a pressure of 10 mmHg pressure. 10 mm laparoscope was inserted. Inspection revealed no trocar injuries. The gallbladder was markedly distended. There was some bile leak stained ascitic fluid within the abdomen. I did not see any specific saponification. The gallbladder was distracted after 385 [place] ports were placed in the epigastric right upper quadrant and right lateral upper quadrant. Blunt dissection was used to dissect free the gallbladder peritoneum until clearly the cystic duct and cystic artery were identified. The cystic artery was clipped proximally and distally with hemo-lock clips prior to transecting it. Cystic duct was secured with hemo-lock clip. An incision was made in the cystic duct and a sludgy almost purulent count of bile emanated there from. I placed a cholangiogram catheter and fluoroscopically control cholangiograms were obtained this demonstrated flow into the duodenum. The common bile duct was generally distended and slightly tapered distally. I could not see any distinct flow- limiting stones. The cholangiogram catheter was removed hemo-lock clip was placed on the cystic duct prior to transecting it the gallbladder was dissected free from the liver bed complete hemostasis was intact the gallbladder was placed in retrieval bag. The liver bed area was inspected hemostatic. All gas was released through the anti-viral side-port filter. The gallbladder was then removed the fascia at the umbilicus approximated with a running 0 Vicryl suture. Skin edges approximate interrupted 4-0 Monocryl subdermal stitches. Steri-Strips Telfa and OpSite dressings applied. Sponge and instrument and needle counts were reported to the surgeon be correct. Blood loss minimal. Specimen gallbladder. Blood loss minimal. Drains none. Jason Ariza M.D., F.A.C.S. Type of Anesthesia:: General Anesthesiologist: Aaron Lynn
--- NOTE | 2020-02-25 10:10 | CASEMGMT ---
RN CM attempted to complete assessment at this time. Patient is currently out of the room and in surgery. CM will attempt to complete assessment at later time.
--- NOTE | 2020-02-25 11:00 | CASEMGMT ---
RN CM Face to Face with patient for initial transition planning/care coordination assessment. RN CM introduced self and role at [facility]. Patient lying in bed, alert and oriented. Patient willing to participate in assessment and is able to answer all questions appropriately. Care providers, pharmacy, and demographics verified. Patient wishes to discharge home, denies need for home health at this time. Patient states she has no further needs or concerns at this time. CM to follow for discharge planning needs that may arise. PCP: Keli Specialists: Dr. Bryant, pain specialist, Bart[place] Preferred Pharmacy: [facility] Insurance: Individual Digital [facility] Prescription Benefit: yes Living Will/HPOA: yes, Fidel primary, daughter Caden Beckwith secondary. Patient states that has poor health and prefers daughter to be decision maker at this time if patient is unable to make own decisions LNOK: , daughter Living Arrangements: Patient lives with in 1 story home with 2 steps with railing to enter the home. Patient is independent at home. Transportation: self/daughter DME/HHC: Patient states that she has walker and shower chair at home. Denies need for HHC at this time. Disposition Plan: Patient to discharge home with family support and follow-up plans in place. Bea GRAHAM, RN, CM
--- NOTE | 2020-02-25 11:13 | PCM.PN.HOSP ---
Patient Problems: Active and Suspected Problems Acute pancreatitis (Acute) Gallstones (Acute) Subjective: Says that her pancreatitis pain is better though she is little bit sleepy and little bit sore from surgery. Vitals/I&O's: Vital Signs Temp Pulse Resp BP Pulse Ox 98.8 F 66 18 113/57 L 96 02/25/20 10:18 02/25/20 10:18 02/25/20 10:18 02/25/20 10:18 02/25/20 10:18 Oxygen Flow Rate (L/min) 2 Oxygen Delivery Method Room Air Weight: 130 lb 12.8 oz Body Mass Index (BMI) 21.7 Intake and Output for Last 24 Hours 02/23/20 02/24/20 02/25/20 23:59 23:59 23:59 Intake Total 1922.92 / 1922.92 735.83 / 735.83 Output Total 300 / 300 Balance 1922.92 / 1622.92 435.83 / 435.83 General: Alert, Oriented x3, Cooperative, No apparent distress HEENT: Atraumatic, PERRLA, EOMI, Normocephalic Oral: Dry Mucosa Neck: Supple, No JVD Lungs: Clear to auscultation, Normal air movement, No rhonchi, No wheeze, No rales, Diminished Cardiovascular: Regular rate, Regular Rhythm, Normal S1, Normal S2, No murmurs Abdomen: Soft, Non-Distended, No Hepato-splenomegaly, Tender - Epigastric and around surgical site Extremities: No edema, Capillary Refill Less than 3 Seconds Skin: No rashes, No breakdown Neurological: Neuro grossly intact, Sensory exam intact to light touch and pain Psych/Mental Status: Normal Affect, Appropriate Laboratory Results 02/24/20 10:40: Lipase 48280 H 02/24/20 12:10: Urine Color Yellow, Urine Clarity Cloudy, Urine pH 7.0, Ur Specific [place] 1.005, Urine Protein 15 H, Urine Glucose (UA) Normal, Urine Ketones Negative, Urine Occult Blood 10 H, Urine Nitrite Positive H, Urine Bilirubin Negative, Urine Urobilinogen Normal, Ur Leukocyte Esterase 500 H, Urine RBC 0-5 SEEN, Urine WBC 25-50 SEEN, Ur Squamous Epith Cells 0 SEEN, Urine Bacteria 3+, Urine Mucus 0 SEEN 02/25/20 03:54: WBC Pending, RBC Pending, Hgb Pending, Hct Pending, MCV Pending, MCH Pending, MCHC Pending, RDW Std Deviation Pending, RDW Coeff of William Pending, Plt Count Pending, Neut % (Auto) Pending, Absolute Neuts (auto) Pending 02/25/20 03:54: Sodium 142, Potassium 3.5, Chloride 108 H, Carbon Dioxide 25.0, Anion Gap 9, BUN 22 H, Creatinine 0.77, Estim Creat Clear Calc 39.70, Est GFR (MDRD) Af Amer 92, Est GFR (MDRD) Non-Af 76, BUN/Creatinine Ratio 28.6 H, Glucose 120 H, Calcium 8.3 L, Magnesium 2.3, Total Bilirubin 0.70, AST 61 H, ALT 73 H, Alkaline Phosphatase 52, Total Protein 6.2 L, Albumin 3.1 L, Globulin 3.1, Albumin/Globulin Ratio 1.0, Lipase 5286 H Current Medications Acetaminophen (Tylenol) 650 mg PO Q6H PRN PRN PRN Reason: Pain Score 1-10/10 Hydrocodone Bitart/Acetaminophen (Mineral 5mg-325mg) 1 - 2 tablet PO Q6H PRN PRN PRN Reason: Pain Score 1-10/10 Enoxaparin Sodium (Lovenox) 40 mg SC DAILY [facility] Ampicillin Sodium/Sulbactam (Sodium 3 gm/ Sodium Chloride) 112 mls @ 150 mls/hr IV Q8 [facility] Last Infusion: 02/24/20 22:43 Dose: Infused Documented by: Potassium Chloride/Sodium Chloride () 1,000 mls @ 70 mls/hr IV .[id number] [facility] Melatonin (Melatonin) 3 mg PO QHS PRN PRN PRN Reason: INSOMNIA Last Admin: 02/24/20 20:44 Dose: 3 mg Documented by: Morphine Sulfate () 2 - 4 mg IV Q3H PRN PRN PRN Reason: Pain Score 6-10/10 Last Admin: 02/24/20 14:41 Dose: 4 mg Documented by: Morphine Sulfate () 2 - 4 mg IV Q3H PRN PRN PRN Reason: pain scale 6-10/10 Last Admin: 02/24/20 23:45 Dose: 4 mg Documented by: Ondansetron HCl (Zofran) 4 mg IV Q8H PRN PRN PRN Reason: NAUSEA/VOMITING Sodium Chloride () 10 - 40 ml IV UD PRN PRN Reason: SALINE FLUSH Last Admin: 02/24/20 17:57 Dose: 20 ml Documented by: Ursodiol (Keshia) 250 mg PO TIDCM [facility] STROKE Vital Signs/Narrative: Vital Signs Temp Pulse Resp BP Pulse Ox 02/25/20 10:18 98.8 F 66 18 113/57 L 96 02/25/20 09:54 98.3 F 65 16 115/62 94 02/25/20 09:45 98.6 F 64 16 110/61 95 02/25/20 09:30 65 17 112/63 99 02/25/20 09:17 99.2 F H 73 16 111/97 H 98 Medical Necessity - Tobacco Use Smoking Status: Never smoker Tobacco Use: Non-smoker Assessment/Plan All Active Problems Acute pancreatitis (Acute) Gallstones (Acute) 1. Acute cholecystitis with acute pancreatitis/possible UTI -Cholangiogram was negative for filling defect, so she likely passed a stone earlier prior to presentation -We will continue with Unasyn for now for her cholecystitis as well as the possible UTI, urine culture is pending -Continue with IV fluids, will continue with n.p.o. postoperatively -IV morphine for pain control, p.o. Mineral as well -Lipase decreased from almost 18,000 down to 5000 no need for further checking -Ursodiol for the biliary sludge 2. HTN/HLD -Blood pressures are stable, will continue with metoprolol but hold her HCTZ -We will continue with her statin 3. GERD -Stable -Continue with Zantac DVT: Lovenox Inpatient E&M: 22442 Subs Hosp L2
[2020-02-25 11:53] LABS: Absolute Lymphocyte Count 0.43 X10^3/uL (0.83-4.51); Basophil# 0.04 X10^3/uL; Basophil% 0.2 % (0-1); Eosinophil# 0.18 X10^3/uL; Eosinophils% 0.9 % (0-5); Hematocrit 35.6 % (37-47); Lymphocyte # 0.43 X10^3/ul (4.0); Lymphocyte % 2.1 % (19-41); Mean Corp Hgb Conc 33.7 g/dL (32-36); Mean Corpuscular Volume 94.9 fL (81-99); Monocyte# 1.01 X10^3/uL; Monocyte% 4.9 % (0-10); NRBC Flagged by Analyzer 0 % (0-5); Neutrophil % 91.3 % (47-70); POSITIVE DIFFERENTIAL YES; POSITIVE MORPHOLOGY YES; Platelet Count 256 K/mm3 (150-450); RBC Distribution Width CV 12.1 % (11.6-14.6); RBC Distribution Width SD 42.4 fl (35.1-43.9); Red Blood Count 3.75 M/mm3 (4.2-5.4); White Blood Count 20.8 K/mm3 (4.4-11.0)
--- NOTE | 2020-02-25 11:57 | PCM.PN.BLA ---
Progress Note There was some reflux of contrast into the pancreatic duct during the cholangiogram and upon my review I could not be certain there was not any sludge in the distal CBD so I will prescribe ursodiol and recheck labs again in the a.m. to assess for possible contrast aggravation of pancreatitis. Raul STROKE Vital Signs/Narrative: Vital Signs Temp Pulse Resp BP Pulse Ox 02/25/20 10:18 98.8 F 66 18 113/57 L 96 02/25/20 09:54 98.3 F 65 16 115/62 94 02/25/20 09:45 98.6 F 64 16 110/61 95 02/25/20 09:30 65 17 112/63 99 02/25/20 09:17 99.2 F H 73 16 111/97 H 98
[2020-02-25] MEDS: Enoxaparin 40 MG/0.4 ML Syringe SC (12:27)
[2020-02-25] MEDS: Ursodiol 250 MG Tablet PO ×2 (12:27→17:56)
[2020-02-25] MEDS: Acetaminophen 325 MG Tablet 650 MG PO ×2 (12:27→22:49)
[2020-02-25 13:22] LABS: Differential Indicated SCAN CRITERIA MET
[2020-02-25 13:24] LABS: Differential Comment SCANNED
[2020-02-25] MEDS: HYDROcodone Bitartrate/Apap 5/325 Tablet PO (17:56)
[2020-02-25] MEDS: MELATONIN 3 MG TABLET PO (22:35)
[2020-02-26 01:59] VITALS: BP 107/66; PULSE 72; RESP 16; TEMP 36.8; O2SAT 93
[2020-02-26 05:22] LABS: Absolute Lymphocyte Count 0.95 X10^3/uL (0.83-4.51); Absolute Neutrophil Count 16.1 X10^3/uL (2.0-7.7); Basophil# 0.05 X10^3/uL; Basophil% 0.3 % (0-1); Eosinophil# 0.04 X10^3/uL; Eosinophils% 0.2 % (0-5); Hematocrit 34.3 % (37-47); Hemoglobin 11.3 g/dL (12.0-15.0); Lymphocyte # 0.95 X10^3/ul (4.0); Lymphocyte % 5.2 % (19-41); Mean Corp Hgb Conc 32.9 g/dL (32-36); Mean Corpuscular Hgb 32.2 pg (27.0-32.0); Mean Corpuscular Volume 97.7 fL (81-99); Mean Platelet Vol. 10.1 fl (6.2-12.0); Monocyte# 0.88 X10^3/uL; Monocyte% 4.8 % (0-10); NRBC Flagged by Analyzer 0 % (0-5); Neutrophil # 16.08 X10^3/uL (2.7-7.7); Neutrophil % 88.7 % (47-70); Platelet Count 231 K/mm3 (150-450); RBC Distribution Width CV 12.5 % (11.6-14.6); RBC Distribution Width SD 45.1 fl (35.1-43.9); Red Blood Count 3.51 M/mm3 (4.2-5.4); White Blood Count 18.2 K/mm3 (4.4-11.0)
[2020-02-26 05:37] LABS: ALB/GLOB Ratio 0.9 RATIO (0.9-2.4); AST(SGOT) 58 U/L (15-37); Alanine Aminotransfer ALT/SGPT 63 U/L (13-56); Alkaline Phosphatase 57 U/L (45-117); Anion Gap 6 (5-15); BUN 21 mg/dL (7-18); Calcium,Total 8.4 mg/dL (8.5-10.1); Chloride 107 mmol/L (98-107); Creatinine, Serum 0.75 mg/dL (0.55-1.02); EST Glomerular Filtration Rate 79 mL/min (>60); Est Glom Filt Rate - Afr Amer 95 mL/min (>60); Globulin 3.3 g/dL (2.2-4.2); Glucose 87 mg/dL (74-106); Lipase 980 U/L (73-393); Potassium 3.5 mmol/L (3.5-5.1); Protein, Total 6.3 g/dL (6.4-8.2); Sodium Level 138 mmol/L (136-145)
--- NOTE | 2020-02-26 06:26 | PN.SURG_ITS ---
Patient Problems: Active and Suspected Problems Acute pancreatitis (Acute) Gallstones (Acute) Subjective: No flatus but comfort improved at rest. She has been walking and doing well with that. Tolerating clears - Physical Exam Vitals/I&O's: Vital Signs Temp Pulse Resp BP Pulse Ox 98.3 F 72 16 107/66 93 02/26/20 01:59 02/26/20 01:59 02/26/20 01:59 02/26/20 01:59 02/26/20 01:59 Oxygen Flow Rate (L/min) 2 Oxygen Delivery Method Room Air Weight: 130 lb 12.804 oz Body Mass Index (BMI) 21.7 Intake and Output for Last 24 Hours 02/24/20 02/25/20 02/26/20 23:59 23:59 23:59 Intake Total 1922.92 / 1922.92 2142.75 / 2572.75 1231.66 / 1231.66 Output Total 450 / 800 825 / 825 Balance 1922.92 / 1622.92 1692.75 / 1772.75 406.66 / 406.66 Lungs: Clear to auscultation Abdomen: Soft, Non Tender, Hypoactive Bowel Sounds, Distended Microbiology Past 72 Hours 02/24/20 12:10 Urine, Clean Catch Urine Culture - Preliminary GNR lactose support representative Laboratory Results 02/25/20 03:54: WBC 20.8 H, RBC 3.75 L, Hgb 12.0, Hct 35.6 L, MCV 94.9, MCH 32.0, MCHC 33.7, RDW Std Deviation 42.4, RDW Coeff of William 12.1, Plt Count 256, MPV 10.0, Immature Gran % (Auto) 0.600, Neut % (Auto) 91.3 H, Lymph % (Auto) 2.1 L, [place] % (Auto) 4.9, Eos % (Auto) 0.9, Baso % (Auto) 0.2, Absolute Neuts (auto) 19.0 H, Absolute Lymphs (auto) 0.43 L, Nucleated RBC % 0, Differential Comment SCANNED 02/25/20 03:54: Sodium 142, Potassium 3.5, Chloride 108 H, Carbon Dioxide 25.0, Anion Gap 9, BUN 22 H, Creatinine 0.77, Estim Creat Clear Calc 39.70, Est GFR (MDRD) Af Amer 92, Est GFR (MDRD) Non-Af 76, BUN/Creatinine Ratio 28.6 H, Glucose 120 H, Calcium 8.3 L, Magnesium 2.3, Total Bilirubin 0.70, AST 61 H, ALT 73 H, Alkaline Phosphatase 52, Total Protein 6.2 L, Albumin 3.1 L, Globulin 3.1, Albumin/Globulin Ratio 1.0, Lipase 5286 H 02/26/20 05:08: WBC 18.2 H, RBC 3.51 L, Hgb 11.3 L, Hct 34.3 L, MCV 97.7, MCH 32.2 H, MCHC 32.9, RDW Std Deviation 45.1 H, RDW Coeff of William 12.5, Plt Count 231, MPV 10.1, Immature Gran % (Auto) 0.800, Neut % (Auto) 88.7 H, Lymph % (Auto) 5.2 L, [place] % (Auto) 4.8, Eos % (Auto) 0.2, Baso % (Auto) 0.3, Absolute Neuts (auto) 16.1 H, Absolute Lymphs (auto) 0.95, Nucleated RBC % 0 02/26/20 05:08: Sodium 138, Potassium 3.5, Chloride 107, Carbon Dioxide 25.0, Anion Gap 6, BUN 21 H, Creatinine 0.75, Estim Creat Clear Calc 39.70, Est GFR (MDRD) Af Amer 95, Est GFR (MDRD) Non-Af 79, BUN/Creatinine Ratio 28.0 H, Glucose 87, Calcium 8.4 L, Total Bilirubin 0.60, AST 58 H, ALT 63 H, Alkaline Phosphatase 57, Total Protein 6.3 L, Albumin 3.0 L, Globulin 3.3, Albumin/Globulin Ratio 0.9, Lipase 980 H Current Medications Acetaminophen (Tylenol) 650 mg PO Q6H PRN PRN PRN Reason: Pain Score 1-09/03 Last Admin: 02/25/20 22:49 Dose: 650 mg Documented by: Hydrocodone Bitart/Acetaminophen ([place] 5mg-325mg) 1 - 2 tablet PO Q6H PRN PRN PRN Reason: Pain Score 1-09/03 Last Admin: 02/25/20 17:56 Dose: 1 tablet Documented by: Enoxaparin Sodium (Lovenox) 40 mg SC DAILY [facility] Last Admin: 02/25/20 12:27 Dose: 40 mg Documented by: Ampicillin Sodium/Sulbactam (Sodium 3 gm/ Sodium Chloride) 112 mls @ 150 mls/hr IV Q8 DELMY Last Admin: 02/26/20 05:42 Dose: 150 mls/hr Documented by: Potassium Chloride/Sodium Chloride () 1,000 mls @ 70 mls/hr IV .[id number] DELMY Last Infusion: 02/26/20 05:42 Dose: 0 mls/hr Documented by: Sodium Chloride () 250 mls @ 15 mls/hr IV .[id number] PRN PRN Reason: Saline Flush Last Infusion: 02/25/20 22:31 Dose: 0 mls/hr Documented by: Sodium Chloride () 250 mls @ 15 mls/hr IV .[id number] PRN PRN Reason: Additional IVPB Infusion Melatonin (Melatonin) 3 mg PO QHS PRN PRN PRN Reason: INSOMNIA Last Admin: 02/25/20 22:35 Dose: 3 mg Documented by: Morphine Sulfate () 2 - 4 mg IV Q3H PRN PRN PRN Reason: Pain Score 6-10/10 Last Admin: 02/24/20 14:41 Dose: 4 mg Documented by: Morphine Sulfate () 2 - 4 mg IV Q3H PRN PRN PRN Reason: pain scale 6-10/10 Last Admin: 02/24/20 23:45 Dose: 4 mg Documented by: Ondansetron HCl (Zofran) 4 mg IV Q8H PRN PRN PRN Reason: NAUSEA/VOMITING Sodium Chloride () 10 - 40 ml IV UD PRN PRN Reason: SALINE FLUSH Last Admin: 02/24/20 17:57 Dose: 20 ml Documented by: Ursodiol (Keshia) 250 mg PO TIDCM [facility] Last Admin: 02/25/20 17:56 Dose: 250 mg Documented by: Medical Necessity - Tobacco Use Smoking Status: Never smoker Tobacco Use: Non-smoker Assessment/Plan All Active Problems Acute pancreatitis (Acute) Gallstones (Acute) Steady clinical improvement LFTs/lipase improved Persistent leukocytosis but pt clinically is not demonstrating this Will advance diet and assess pt progress My preference would be discharge later today pending her ability to hydrate.
--- NOTE | 2020-02-26 06:29 | DCINST_ITS ---
Discharge Diet: Light diet - advance as tolerated - if you have questions about your diet instructions, please talk to you doctor. Discharge Activity: May Not Drive - for 1 week or while taking narcotic pain medicine. May shower in (days): 0 - May shower now Lifting Restrictions: 10 pounds Call your doctor if your incision/area has: Continuous Slow Oozing, Sudden Increased Bleeding, Increased Pain/ Swelling, Increased Redness, Foul Smelling Discharge Call your doctor if you observe: Fever of 101 or Higher Suture Line Care: Avoid Pulling/Pushing, Avoid Pinching/Bending Additional Dressing/Incision Instructions:: Change or remove dressing in 2 days. Leave steri-strips in place for 1 week. Additional Instructions: Tylenol as needed for pain. You may use your already prescribed Tramadol if needed. Allergies/Adverse Reactions: Allergies No Known Allergies Allergy (Verified 02/24/20 09:58) Medications to take at Discharge Hydrochlorothiazide [Hctz] 25 mg PO DAILY 06/17/17 Potassium Chloride [K-Dur] 20 meq PO DAILY 06/17/17 Acetaminophen [Tylenol] 1,000 mg PO Q8H PRN PRN 02/24/20 Atorvastatin Calcium [Lipitor] 10 mg PO QHS 02/24/20 Metoprolol Succinate [Toprol Xl] 100 mg PO DAILY 02/24/20 traMADol [Ultram (G)] 25 - 50 mg PO Q6H PRN PRN 02/24/20 Primary Care Physician: Timothy Dickey MD [Primary Care Provider] - Test Results: Test results from this visit will be discussed in further detail at your follow- up appointment, if applicable. Please Follow Up With: Jason Ariza MD - [phone] When: Call with progress report in one week please.
[2020-02-26 08:00] VITALS: BP 116/61; PULSE 74; RESP 16; TEMP 36.8; O2SAT 94
--- NOTE | 2020-02-26 09:24 | PCM.PN.HOSP ---
Patient Problems: Active and Suspected Problems Acute pancreatitis (Acute) Gallstones (Acute) Subjective: She is feeling better, her abdominal pain has improved considerably since admission but she is sore from surgery. She is tolerating clears and is ambulating. Vitals/I&O's: Vital Signs Temp Pulse Resp BP Pulse Ox 98.3 F 74 16 116/61 94 02/26/20 08:00 02/26/20 08:00 02/26/20 08:00 02/26/20 08:00 02/26/20 08:00 Oxygen Flow Rate (L/min) 2 Oxygen Delivery Method Room Air Weight: 130 lb 12.804 oz Body Mass Index (BMI) 21.7 Intake and Output for Last 24 Hours 02/24/20 02/25/20 02/26/20 23:59 23:59 23:59 Intake Total 1922.92 / 1922.92 2142.75 / 2572.75 1343.66 / 1343.66 Output Total 450 / 800 825 / 825 Balance 1922.92 / 1622.92 1692.75 / 1772.75 518.66 / 518.66 General: Alert, Oriented x3, Cooperative, No apparent distress HEENT: Atraumatic, PERRLA, EOMI, Normocephalic Oral: Dry Mucosa Neck: Supple, No JVD Lungs: Clear to auscultation, Normal air movement, No rhonchi, No wheeze, No rales, Diminished Cardiovascular: Regular rate, Regular Rhythm, Normal S1, Normal S2, No murmurs Abdomen: Soft, Non-Distended, No Hepato-splenomegaly, Tender - around surgical site Extremities: No edema, Capillary Refill Less than 3 Seconds Skin: No rashes, No breakdown, incision is CDI Neurological: Neuro grossly intact, Sensory exam intact to light touch and pain Psych/Mental Status: Normal Affect, Appropriate Microbiology Past 72 Hours 02/24/20 12:10 Urine, Clean Catch Urine Culture - Preliminary GNR lactose it project manager Laboratory Results 02/25/20 03:54: WBC 20.8 H, RBC 3.75 L, Hgb 12.0, Hct 35.6 L, MCV 94.9, MCH 32.0, MCHC 33.7, RDW Std Deviation 42.4, RDW Coeff of William 12.1, Plt Count 256, MPV 10.0, Immature Gran % (Auto) 0.600, Neut % (Auto) 91.3 H, Lymph % (Auto) 2.1 L, [place] % (Auto) 4.9, Eos % (Auto) 0.9, Baso % (Auto) 0.2, Absolute Neuts (auto) 19.0 H, Absolute Lymphs (auto) 0.43 L, Nucleated RBC % 0, Differential Comment SCANNED 02/25/20 03:54: Sodium 142, Potassium 3.5, Chloride 108 H, Carbon Dioxide 25.0, Anion Gap 9, BUN 22 H, Creatinine 0.77, Estim Creat Clear Calc 39.70, Est GFR (MDRD) Af Amer 92, Est GFR (MDRD) Non-Af 76, BUN/Creatinine Ratio 28.6 H, Glucose 120 H, Calcium 8.3 L, Magnesium 2.3, Total Bilirubin 0.70, AST 61 H, ALT 73 H, Alkaline Phosphatase 52, Total Protein 6.2 L, Albumin 3.1 L, Globulin 3.1, Albumin/Globulin Ratio 1.0, Lipase 5286 H 02/26/20 05:08: WBC 18.2 H, RBC 3.51 L, Hgb 11.3 L, Hct 34.3 L, MCV 97.7, MCH 32.2 H, MCHC 32.9, RDW Std Deviation 45.1 H, RDW Coeff of William 12.5, Plt Count 231, MPV 10.1, Immature Gran % (Auto) 0.800, Neut % (Auto) 88.7 H, Lymph % (Auto) 5.2 L, [place] % (Auto) 4.8, Eos % (Auto) 0.2, Baso % (Auto) 0.3, Absolute Neuts (auto) 16.1 H, Absolute Lymphs (auto) 0.95, Nucleated RBC % 0 02/26/20 05:08: Sodium 138, Potassium 3.5, Chloride 107, Carbon Dioxide 25.0, Anion Gap 6, BUN 21 H, Creatinine 0.75, Estim Creat Clear Calc 39.70, Est GFR (MDRD) Af Amer 95, Est GFR (MDRD) Non-Af 79, BUN/Creatinine Ratio 28.0 H, Glucose 87, Calcium 8.4 L, Total Bilirubin 0.60, AST 58 H, ALT 63 H, Alkaline Phosphatase 57, Total Protein 6.3 L, Albumin 3.0 L, Globulin 3.3, Albumin/Globulin Ratio 0.9, Lipase 980 H Current Medications Acetaminophen (Tylenol) 650 mg PO Q6H PRN PRN PRN Reason: Pain Score 1-10/10 Last Admin: 02/25/20 22:49 Dose: 650 mg Documented by: Hydrocodone Bitart/Acetaminophen ([place] 5mg-325mg) 1 - 2 tablet PO Q6H PRN PRN PRN Reason: Pain Score 1-1010 Last Admin: 02/25/20 17:56 Dose: 1 tablet Documented by: Enoxaparin Sodium (Lovenox) 40 mg SC DAILY [facility] Last Admin: 02/25/20 12:27 Dose: 40 mg Documented by: Ampicillin Sodium/Sulbactam (Sodium 3 gm/ Sodium Chloride) 112 mls @ 150 mls/hr IV Q8 [facility] Last Infusion: 02/26/20 06:27 Dose: Infused Documented by: Potassium Chloride/Sodium Chloride () 1,000 mls @ 70 mls/hr IV .[id number] [facility] Last Infusion: 02/26/20 06:27 Dose: 70 mls/hr Documented by: Sodium Chloride () 250 mls @ 15 mls/hr IV .[id number] PRN PRN Reason: Saline Flush Last Infusion: 02/25/20 22:31 Dose: 0 mls/hr Documented by: Sodium Chloride () 250 mls @ 15 mls/hr IV .[id number] PRN PRN Reason: Additional IVPB Infusion Melatonin (Melatonin) 3 mg PO QHS PRN PRN PRN Reason: INSOMNIA Last Admin: 02/25/20 22:35 Dose: 3 mg Documented by: Morphine Sulfate () 2 - 4 mg IV Q3H PRN PRN PRN Reason: Pain Score 6-10/10 Last Admin: 02/24/20 14:41 Dose: 4 mg Documented by: Morphine Sulfate () 2 - 4 mg IV Q3H PRN PRN PRN Reason: pain scale 6-10/10 Last Admin: 02/24/20 23:45 Dose: 4 mg Documented by: Ondansetron HCl (Zofran) 4 mg IV Q8H PRN PRN PRN Reason: NAUSEA/VOMITING Sodium Chloride () 10 - 40 ml IV UD PRN PRN Reason: SALINE FLUSH Last Admin: 02/24/20 17:57 Dose: 20 ml Documented by: Ursodiol (Keshia) 250 mg PO TIDCM DELMY Last Admin: 02/25/20 17:56 Dose: 250 mg Documented by: STROKE Vital Signs/Narrative: Vital Signs Temp Pulse Resp BP Pulse Ox 02/26/20 08:00 98.3 F 74 16 116/61 94 Medical Necessity - Tobacco Use Smoking Status: Never smoker Tobacco Use: Non-smoker Assessment/Plan All Active Problems Acute pancreatitis (Acute) Gallstones (Acute) 1. Acute cholecystitis with acute pancreatitis/possible UTI -Cholangiogram was negative for filling defect, so she likely passed a stone earlier prior to presentation -We will continue with Unasyn for now for her cholecystitis as well as the possible UTI, urine culture with a gram-negative juan of 50-80,000 colony-forming units -Tolerating a clear liquid diet -IV morphine for pain control, p.o. [place] as well -Lipase decreased from almost 18,000 is now down to 980 -Ursodiol for the biliary sludge 2. HTN/HLD -Blood pressures are stable, will continue with metoprolol but hold her HCTZ -We will continue with her statin 3. GERD -Stable -Continue with Zantac DVT: Lovenox Inpatient E&M: 80100 Subs Hosp L2
[2020-02-26] MEDS: Enoxaparin 40 MG/0.4 ML Syringe SC (10:46)
[2020-02-26] MEDS: Ursodiol 250 MG Tablet PO ×2 (10:46→14:26)
[2020-02-26] MEDS: Lactulose 20 GM/30 ML UDC PO (12:43)
[2020-02-26 14:00] VITALS: BP 138/74; PULSE 80; RESP 18; TEMP 36.8; O2SAT 94
--- NOTE | 2020-02-26 14:25 | CHAPLAIN ---
Type of Pastoral Visit ___ Initial Visit _x__ Follow-up Visit ___ On-call Visit ___ General Patient Visit ___ Spiritual Assessment ___ Family Conference ___ Bereavement ___ Rapid Response ___ Code Blue ___ Other (describe below) Pastoral Care Referral From _x__ Patient ___ Family ___ Nurse ___ Physician ___ Solar Sales Ambassador ___ Sheep Farmer ___ Other (describe below) Sacrament/Intervention _x__ Active listening ___ Anointing ___ Jainism ___ Bereavement ___ Communion _x__ Abbie exploration ___ _x__ Life review _x__ Prayer ___ Reconciliation ___ Sacrament of Sick ___ Supportive presence ___ Wedding ___ Other (describe below) Pastoral Comments
[2020-02-26] MEDS: Bisacodyl 10 MG Suppository RECTAL (16:36)
[2020-02-26] MEDS: Acetaminophen 325 MG Tablet 650 MG PO (16:36)
--- NOTE | 2020-02-26 18:37 | DS.PCM_ITS ---
Discharge Date and Diagnosis Date of Admission: 02/24/20 Date of Discharge: 02/26/20 - Secondary Discharge Diagnosis Chronic Problems Hypertension (Chronic) Hyperlipidemia (Chronic) GERD (gastroesophageal reflux disease) (Chronic) Cholelithiasis with chronic cholecystitis (Chronic) Hospital Course and Treatment Imaging Results: CT abd/pelvis: IMPRESSION: Intrahepatic bile duct distention. Distended gallbladder with sludge and stones. Distended common common bile duct. Enlarged possibly edematous pancreas suggestive of pancreatitis. Correlate with pancreatic enzymes. RUQ US: IMPRESSION: As seen on CT scan, markedly abnormal gallbladder is distended, has a thickened wall, numerous stones and sludge, and there was localized tenderness consistent with cholecystitis. Cholangiogram: IMPRESSION: Dilated common bile duct. No retained calculi are seen. There is free flow of contrast into the duodenum. Report of Operation Date of Procedure: 02/25/20 Pre-Operative Diagnosis: Gallstone pancreatitis, chronic cholecystitis cholelithiasis Post-Operative Diagnosis: Same Surgery/Procedure Performed:: Laparoscopic cholecystectomy with cholangiograms Consults: General Surgery Operations: cholecystecomy Procedures: None Summary of Care Provided: Per HPI: The patient is a 79 year old F who presents emergency room due to abdominal pain. Patient states abdominal pain had a fairly sudden onset early this morning about 4 AM. She describes generalized abdominal pain however slightly increased in the left upper quadrant. She denies nausea, vomiting. Denies fever, chills. Denies urinary symptoms. Denies flank pain. Denies other recent illness. She has a past medical history of hypertension, hyperlipidemia, GERD. Hospital Course: 1. Acute cholecystitis with acute pancreatitis/possible ENO-35-ylup-old female presented to the hospital with pain since around 4 AM on the day of presentation, was found to have a dilated common bile duct with a thickened gallbladder wall as well as sludge in the gallbladder. Her bilirubin was not elevated and cholangiograms did not show filling defect so she likely passed a stone. Her bilirubin did trend down which is consistent with passing a stone, initially she also presented with a lipase of almost 18,000 which on the day of discharge was down to 980. She was initially started on Unasyn in combination for the cholecystitis and the UTI. Her UA was significant however her urine culture is demonstrating 50-80,000 colony-forming units of a gram-negative juan so she was discharged on a few more days of Keflex and I will follow-up the cultures tomorrow once they are finalized to make any antibiotic adjustments if necessary. She was tolerating a full liquid diet and was not having any increased abdominal pain and therefore she felt like she would be able to go home. That was discussed with general surgery who also concurred with her being able to go home, they had added ursodiol to her medication list given her stones and sludge, she was discharged with this medication and will need to follow-up with surgery as an outpatient. She was able to urinate on her own and was ambulating just fine, she did not require a lot of pain medication and therefore discharge planning was discussed with her and she expressed understanding the risks and benefits of going home. 2. Her other medical diagnoses were evaluated and her home medications were continued where appropriate - Physical Exam Vitals/I&O's: Vital Signs Temp Pulse Resp BP Pulse Ox 98.2 F 80 18 138/74 H 94 02/26/20 14:00 02/26/20 14:00 02/26/20 14:00 02/26/20 14:00 02/26/20 14:00 Oxygen Flow Rate (L/min) 2 Oxygen Delivery Method Room Air Weight: 130 lb 12.804 oz Body Mass Index (BMI) 21.7 Intake and Output for Last 24 Hours 02/24/20 02/25/20 02/26/20 23:59 23:59 23:59 Intake Total 1922.92 / 1922.92 2142.75 / 2572.75 2377.99 / 2377.99 Output Total 450 / 800 1325 / 1325 Balance 1922.92 / 1622.92 1692.75 / 1772.75 1052.99 / 1052.99 Microbiology Past 72 Hours 02/24/20 12:10 Urine, Clean Catch Urine Culture - 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 Laboratory Results 02/26/20 05:08: WBC 18.2 H, RBC 3.51 L, Hgb 11.3 L, Hct 34.3 L, MCV 97.7, MCH 32.2 H, MCHC 32.9, RDW Std Deviation 45.1 H, RDW Coeff of William 12.5, Plt Count 231, MPV 10.1, Immature Gran % (Auto) 0.800, Neut % (Auto) 88.7 H, Lymph % (Auto) 5.2 L, [place] % (Auto) 4.8, Eos % (Auto) 0.2, Baso % (Auto) 0.3, Absolute Neuts (auto) 16.1 H, Absolute Lymphs (auto) 0.95, Nucleated RBC % 0 02/26/20 05:08: Sodium 138, Potassium 3.5, Chloride 107, Carbon Dioxide 25.0, Anion Gap 6, BUN 21 H, Creatinine 0.75, Estim Creat Clear Calc 39.70, Est GFR (MDRD) Af Amer 95, Est GFR (MDRD) Non-Af 79, BUN/Creatinine Ratio 28.0 H, Glucose 87, Calcium 8.4 L, Total Bilirubin 0.60, AST 58 H, ALT 63 H, Alkaline Phosphatase 57, Total Protein 6.3 L, Albumin 3.0 L, Globulin 3.3, Albumin/Globulin Ratio 0.9, Lipase 980 H Discharge Diet: Light diet - advance as tolerated - if you have questions about your diet instructions, please talk to you doctor. Discharge Activity: May Not Drive - for 1 week or while taking narcotic pain medicine. May shower in (days): 0 - May shower now Call your doctor if your incision/area has: Continuous Slow Oozing, Sudden Increased Bleeding, Increased Pain/ Swelling, Increased Redness, Foul Smelling Discharge Call your doctor if you observe: Fever of 101 or Higher Suture Line Care: Avoid Pulling/Pushing, Avoid Pinching/Bending Additional Dressing/Incision Instructions:: Change or remove dressing in 2 days. Leave steri-strips in place for 1 week. Home Medications: Medications to take at Discharge Hydrochlorothiazide [Hctz] 25 mg PO DAILY 06/17/17 Potassium Chloride [K-Dur] 20 meq PO DAILY 06/17/17 Acetaminophen [Tylenol] 1,000 mg PO Q8H PRN PRN 02/24/20 Atorvastatin Calcium [Lipitor] 10 mg PO QHS 02/24/20 Metoprolol Succinate [Toprol Xl] 100 mg PO DAILY 02/24/20 traMADol [Ultram] 25 - 50 mg PO Q6H PRN PRN 02/24/20 Cephalexin [Keflex] 500 mg PO Q8 #9 cap 02/26/20 Ursodiol [Keshia] 250 mg PO TIDCM #21 tab 02/26/20 Following Prescrptions Were Given to Patient: Cephalexin [Keflex] 500 mg PO Q8 #9 cap Transmission Status: Received by [id number] Ursodiol [Keshia] 250 mg PO TIDCM #21 tab Transmission Status: Received by [id number] Primary Care Physician: Timothy Dickey MD [Primary Care Provider] - Please Follow Up With: Jason Ariza MD - [phone] When: Call with progress report in one week please. Additional Instructions: Tylenol as needed for pain. You may use your already prescribed Tramadol if needed. Disposition: Home Minutes spent on discharge:: 35 Patient Condition:: Stable Medical Necessity - Tobacco Use Smoking Status: Never smoker Tobacco Use: Non-smoker Meaningful Use Info Meaningful Use Diagnoses (Choose all that apply): None applicable
== END 2020-02-26 17:41 | disposition home or self-care (01) | DRG 417 ==
LOC: ED 13:41 → PCU 14:02
PROVIDERS: Surgery; Admitting Provider Family Medicine; Emergency Provider Emergency Medicine; PCP Family Medicine; Visit Provider Family Medicine
PROC: 0FT44ZZ Resection of Gallbladder, Percutaneous Endoscopic Approach (ICD-10-PCS; CPT 47610; principal; 2020-02-25 07:10)
DX: K80.12 Calculus of gallbladder with acute and chronic cholecystitis without obstruction (principal); K85.10 Biliary acute pancreatitis without necrosis or infection; N39.0 Urinary tract infection, site not specified; K21.9 Gastro-esophageal reflux disease without esophagitis; I10 Essential (primary) hypertension; E78.5 Hyperlipidemia, unspecified; E87.6 Hypokalemia; E86.0 Dehydration; Z87.442 Personal history of urinary calculi; Z79.899 Other long term (current) drug therapy
CPT/HCPCS: 36415; 71046; 74177; 74300; 76000; 76705; 80053; 81001; 83605; 83690; 83735; 84484; 85025; 87077; 87086; 87088; 87186; 88304; 93005; 97116; 97161; 97166; 99251; 99282; J7030; J7050; Q9967; A4216; G0463; J0295; J1610; J2405

== ENCOUNTER 2021-01-18 15:26 | Outpatient (RCR) | payer MEDICARE, OTHER, SELFPAY ==
[2020-02-24 20:21] VITALS: BMI 21.7
== END 2021-01-18 23:59 ==
LOC: IMMUN 15:26
PROVIDERS: PCP Family Medicine; Visit Provider Family Medicine
DX: Z23 Encounter for immunization (principal)
CPT/HCPCS: 0011A; 0012A